=== PATIENT | female | born 1985 | race Caucasian/White ===

== ENCOUNTER 2025-06-04 11:34 | Outpatient (CLI) | payer BC, SELFPAY ==
[2025-06-06 14:11] LABS: HPV Source Endocervical
[2025-06-07 19:35] LABS: Pap Test Digital Imaging Done
== END 2025-06-04 11:35 | disposition home or self-care (01) ==
PROVIDERS: PCP Family Medicine; Visit Provider Family Medicine
DX: Z00.00 Encounter for general adult medical examination without abnormal findings (principal); Z12.4 Encounter for screening for malignant neoplasm of cervix
CPT/HCPCS: 80053; 80061; 86803; 87624; 87625; 88141; 88142; 88175